=== PATIENT | female | born 1995 | race Caucasian/White ===

== ENCOUNTER 2018-12-04 16:58 | Inpatient (IN) ==
[2018-12-04] MEDS ORDERED: Lactated Ringers-OB Dept 1,000 ML ONE (23:38)
[2018-12-05] MEDS ORDERED: Phenylephrine Inj 50 MCG in Sodium Chloride 0.9% vial 0.5 ML IVP PRN (00:19)
[2018-12-05] MEDS ORDERED: LIDOCAINE HCL 2 % 10 ML JELLY URO-JECT TOPICAL PRN ×2 (00:19→18:07)
[2018-12-05] MEDS ORDERED: NALOXONE 0.4 MG/1 ML VIAL IVP PRN (00:19)
[2018-12-05] MEDS ORDERED: Lidocaine 1% 10 MG/ML - 20 ML VIAL SUBCUT PRN (00:19)
[2018-12-05] MEDS ORDERED: BUTORPHANOL TARTRATE 2 MG/1 ML VIAL IVP PRN (00:19)
[2018-12-05] MEDS ORDERED: diphenhydrAMINE 50 MG/1 ML VIAL IVP PRN ×2 (00:19→18:07)
[2018-12-05] MEDS ORDERED: LIDOCAINE W/ SODIUM BICARB 0.5 ML SYR SUBD PRN (00:19)
[2018-12-05] MEDS ORDERED: CefOXitin Inj 2 GM in Sodium Chloride 0.9% 100 ML IV PRN (00:19)
[2018-12-05] MEDS ORDERED: CITRIC ACID/SODIUM CITRATE 30 ML CUP PO PRN (00:19)
[2018-12-05] MEDS ORDERED: CALCIUM CARBONATE 500 MG (TUMS) CHEWABLE TABLET PO PRN ×2 (00:19→18:07)
[2018-12-05] MEDS ORDERED: METHYLERGONOVINE MALEATE 0.2 MG/1 ML VIAL IM PRN (00:19)
[2018-12-05] MEDS ORDERED: Misoprostol Tab 100 MCG TAB VAGINAL PRN (00:19)
[2018-12-05] MEDS ORDERED: Carboprost Inj 250 MCG/ML AMP IM PRN (00:19)
[2018-12-05] MEDS ORDERED: ONDANSETRON 4 MG/2 ML VIAL IVP PRN ×2 (00:19→18:07)
[2018-12-05] MEDS ORDERED: MISOPROSTOL 200 MCG TABLET RECTAL PRN (00:19)
[2018-12-05] MEDS ORDERED: TERBUTALINE SULFATE 1 MG/1 ML SDV SUBCUT PRN (00:19)
[2018-12-05] MEDS ORDERED: Naloxone Inj 0.01 MG in Sodium Chloride 0.9% vial 1 ML IVP PRN (00:19)
[2018-12-05] MEDS ORDERED: OXYTOCIN 10 UNIT/1 ML IM PRN (00:19)
[2018-12-05] MEDS ORDERED: Nalbuphine Inj 20 MG/ML Ampule IVP PRN ×2 (00:19→18:07)
[2018-12-05] MEDS ORDERED: Metoclopramide Inj 10 MG/2 ML VIAL IV PRN (00:19)
[2018-12-05] MEDS ORDERED: Zolpidem Tab 5 MG TAB PO PRN (00:19)
[2018-12-05] MEDS ORDERED: FAMOTIDINE 20 MG/2 ML VIAL IVP PRN ×2 (00:19)
[2018-12-05] MEDS ORDERED: Oxytocin 20 Units + LR 20 UNIT/1,000 ML BAG IV SCH ×3 (00:30→18:07)
[2018-12-05] MEDS: Lactated Ringers-OB Dept 1,000 ML PRIMARY IV SCH ×2 (00:50→10:12)
[2018-12-05 01:03] LABS: Hematocrit [HCT] 41.2 % (37.0-47.0); Hemoglobin [HGB] 13.6 g/dL (12.0-16.0); MEAN CORPUSCULAR HGB CONC 33.1 g/dL (33-37); MEAN CORPUSCULAR VOLUME 94 FL (81-99); RED BLOOD COUNT 4.39 10^6/uL (4.20-5.40)
[2018-12-05 01:04] LABS: MEAN PLATELET VOLUME 8.4 FL (7.4-12.2)
[2018-12-05] MEDS ORDERED: Oxytocin 20 Units + LR 20 UNIT/1,000 ML BAG IV ONE (03:44)
[2018-12-05] MEDS: fentaNYL Inj 100 MCG/2 ML VIAL IVP PRN ×8 (09:14→15:00)
[2018-12-05] MEDS ORDERED: fentaNYL Inj 100 MCG/2 ML VIAL ONE (16:11)
[2018-12-05] MEDS ORDERED: Ondansetron ODT Tab 4 MG TAB PO PRN (18:07)
[2018-12-05] MEDS ORDERED: LANOLIN HPA 40 GM TUBE TOPICAL PRN (18:07)
[2018-12-05] MEDS ORDERED: HYDROcodone-APAP 5 MG -325 MG TABLET PO PRN (18:07)
[2018-12-05] MEDS ORDERED: DIPH,PERTUSS,TET(ADACEL) VAC/PF 0.5 ML (Tdap) IM ONE (18:07)
[2018-12-05] MEDS ORDERED: BENZOCAINE/MENTHOL SPRAY 56 GM BOTTLE TOPICAL PRN (18:07)
[2018-12-05] MEDS ORDERED: diphenhydrAMINE 25 MG CAPSULE PO PRN (18:07)
[2018-12-05] MEDS ORDERED: Lidocaine 1% 10 MG/ML - 20 ML VIAL INTRADERM PRN (18:07)
[2018-12-05] MEDS ORDERED: GLYCERIN/WITCH HAZEL 1 BOX TOPICAL PRN (18:07)
[2018-12-05] MEDS: IBUPROFEN 800 MG TABLET PO PRN (23:51)
[2018-12-06] MEDS: ACETAMINOPHEN 325 MG TABLET PO PRN ×3 (04:13→23:01)
[2018-12-06] MEDS: ENOXAPARIN SODIUM 40 MG/0.4 ML SYRINGE SUBCUT SCH ×2 (04:19→08:09)
[2018-12-06 05:30] LABS: Hemoglobin [HGB] 11.3 g/dL (12.0-16.0); MEAN CORPUSCULAR VOLUME 90.9 FL (81-99); RED BLOOD COUNT 3.74 10^6/uL (4.20-5.40)
[2018-12-06 05:31] LABS: MEAN CORPUSCULAR HGB CONC 33.2 g/dL (33-37); MEAN PLATELET VOLUME 10.9 FL (7.4-12.2)
[2018-12-06] MEDS ORDERED: ceFAZolin Inj 2gm (Premix) 2 GM/50 ML BAG IV ONE (07:41)
[2018-12-06] MEDS: DOCUSATE 100 MG CAPSULE PO SCH ×2 (08:08→20:38)
[2018-12-06] MEDS: IBUPROFEN 800 MG TABLET PO PRN ×2 (08:08→16:01)
[2018-12-06] MEDS: Prenatal Multivitamin Tab 1 TAB TAB PO SCH (08:09)
[2018-12-06] MEDS: Lactated Ringers-OB Dept 1,000 ML PRIMARY IV SCH (14:40)
[2018-12-07] MEDS: IBUPROFEN 800 MG TABLET PO PRN ×3 (00:49→16:45)
[2018-12-07 01:09] VITALS: TEMP 98.1
[2018-12-07 08:06] VITALS: BP 129/73; RESP 18; O2SAT 100
[2018-12-07] MEDS: Prenatal Multivitamin Tab 1 TAB TAB PO SCH (08:52)
[2018-12-07] MEDS: DOCUSATE 100 MG CAPSULE PO SCH (08:52)
[2018-12-07] MEDS: ENOXAPARIN SODIUM 40 MG/0.4 ML SYRINGE SUBCUT SCH (08:53)
== END 2018-12-07 17:06 | disposition home or self-care (01) | DRG 806 ==
LOC: OBIP 12-05 00:14
PROVIDERS: ADMIT Obstetrics & Gynecology; ATTEND Obstetrics & Gynecology